=== PATIENT | male | born 1945 | race Caucasian/White ===

== ENCOUNTER 2019-10-23 06:36 | Day surgery (SDC) | payer MEDICARE, OTHER ==
[~2019-10-23] VITALS: Ht 182.9 cm; Wt 85.3 kg
[2019-10-23] VITALS (11 sets, daily range): BP systolic 112–188; BP diastolic 50–81
[~2019-10-23 06:36] MED LIST: ASPI-1053 PO; COLE3.75 PO; LISI10TA4 PO; SUBC1EAC17 MC; TICA90TA PO
[2019-10-23] MEDS ORDERED: LEVO75TA PO (07:11)
[2019-10-23] MEDS ORDERED: ISOS30TA6 PO (07:11)
[2019-10-23] MEDS ORDERED: EVOL140S2 (07:11)
[2019-10-23] MEDS ORDERED: MULT-1085 PO (07:11)
[2019-10-23] MEDS ORDERED: iohexol 350MG/ML 100ml bottle IV ONE (07:26)
[2019-10-23] MEDS ORDERED: fentaNYL/PF 50MCG/1 ML 2ML syringe ONE (07:26)
[2019-10-23] MEDS ORDERED: LIDOcaine 1% (10mg/ml)w/preservative injection 20ml MDV ONE (07:26)
[2019-10-23] MEDS ORDERED: midazolam 2 mg/2 ml injection ONE (07:26)
[2019-10-23] MEDS ORDERED: diphenhydrAMINE 25mg capsule PO PRN (07:30)
[2019-10-23] MEDS ORDERED: normal saline 1,000 ML IV SCH (07:30)
[2019-10-23] MEDS ORDERED: LORazepam 0.5 MG tablet PO PRN (07:30)
[2019-10-23 07:34] LABS: BASOPHILS % (AUTO) 0.9 % (0-1); EOSINOPHILS # (AUTO) 0.3 X10'3 (0-0.9); EOSINOPHILS % (AUTO) 6.5 % (0-6); HEMATOCRIT 51.6 % (42.0-52.0); LYMPHOCYTES # (AUTO) 1.1 X10'3 (1.1-4.8); LYMPHOCYTES % (AUTO) 24.7 % (21-51); MEAN CORPUSCULAR HEMOGLOBIN 31.9 PG (27.0-31.0); MEAN CORPUSCULAR VOLUME 96.5 FL (78-98); MEAN PLATELET VOLUME 10.3 FL (7.4-10.4); MONOCYTES # (AUTO) 0.6 X10'3 (0-0.9); NEUTROPHILS # (AUTO) 2.5 X10'3 (1.8-7.7); NEUTROPHILS % (AUTO) 54.9 % (42-75); PLATELET COUNT 150 X10'3 (140-440); RED BLOOD COUNT 5.35 X10'6 (4.70-6.10); RED CELL DISTRIBUTION WIDTH 13.4 % (11.5-14.5); WHITE BLOOD COUNT 4.6 X10'3 (4.5-11.0)
[2019-10-23 07:42] LABS: ALBUMIN 3.5 G/DL (3.4-5.0); ANION GAP 5 (8-16); BLOOD UREA NITROGEN 20 MG/DL (7-18); BUN/CREATININE RATIO 13.3 (5.4-32.0); CHLORIDE 106 MMOL/L (99-107); GLUCOSE 142 MG/DL (70-104); POTASSIUM 4.6 MMOL/L (3.5-5.1); SODIUM 139 MMOL/L (135-145); TOTAL CARBON DIOXIDE 28.3 MMOL/L (24-32); eGFR 46 ML/MIN
[2019-10-23 07:46] LABS: PARTIAL THROMBOPLASTIN TIME 27 SECONDS (22-32)
--- NOTE | 2019-10-23 08:28 | NUR ---
Pt returned to room from cath lab nurse.
[2019-10-23] MEDS ORDERED: ondansetron/PF 4mg/2ml inj IV PRN (08:55)
[2019-10-23] MEDS ORDERED: nitroGLYCERIN 0.4mg SUBLingual tab SL PRN (08:55)
[2019-10-23] MEDS ORDERED: proCHLORperazine 10 MG/2 ml inj IV PRN (08:55)
[2019-10-23] MEDS ORDERED: HYDROcodone/acetaminophen 5mg/325mg tablet PO PRN (08:55)
[2019-10-23] MEDS ORDERED: acetaminophen 325mg tablet PO PRN (08:55)
[2019-10-23] MEDS ORDERED: OXAZEpam 15mg capsule PO PRN (08:55)
[2019-10-23] MEDS ORDERED: HYDROcodone/acetaminophen 10/325mg tab PO PRN (08:55)
--- NOTE | 2019-10-23 10:07 | NUR ---
patient ate 100% of breakfast tray, 250ml oral fluid intake
--- NOTE | 2019-10-23 12:47 | NUR ---
Pt ate 75% of lunch tray, 250ml oral fluid intake. pt voided 150ml, yellow, clear.
== END 2019-10-23 14:05 | disposition home or self-care (01) ==
LOC: MED 3N 06:36 → U 06:36
PROVIDERS: ATTEND Internal Medicine Interventional Cardiology
DX: R94.39 Abnormal result of other cardiovascular function study (principal); T82.855A Stenosis of coronary artery stent, initial encounter; I25.10 Atherosclerotic heart disease of native coronary artery without angina pectoris; I25.82 Chronic total occlusion of coronary artery; E78.5 Hyperlipidemia, unspecified; I35.0 Nonrheumatic aortic (valve) stenosis; E10.22 Type 1 diabetes mellitus with diabetic chronic kidney disease; I12.9 Hypertensive chronic kidney disease with stage 1 through stage 4 chronic kidney disease, or unspecified chronic kidney disease; N18.9 Chronic kidney disease, unspecified; Z79.899 Other long term (current) drug therapy; Z79.82 Long term (current) use of aspirin; Z95.5 Presence of coronary angioplasty implant and graft; Z96.41 Presence of insulin pump (external) (internal); Z88.8 Allergy status to other drugs, medicaments and biological substances; Y83.8 Other surgical procedures as the cause of abnormal reaction of the patient, or of later complication, without mention of misadventure at the time of the procedure; Y92.89 Other specified places as the place of occurrence of the external cause
CPT/HCPCS: 36415; 80048; 82948; 85025; 85610; 85730; 93005; 93455; 99152; 99153; C1769; J1644; J2001; J2250; J3010; J7030; Q0163; Q9967; A6258

== ENCOUNTER 2020-07-01 14:34 | Emergency (ER) | payer MEDICARE, OTHER ==
[~2020-07-01] VITALS: Ht 182.9 cm; Wt 84.1 kg
[~2020-07-01 14:34] MED LIST changes: -COLE3.75 PO; +EVOL140S2; +ISOS30TA6 PO; +LEVO75TA PO; -LISI10TA4 PO; +MULT-1085 PO; -TICA90TA PO
--- NOTE | 2020-07-01 15:36 | NUR ---
pacemaker is from [facility], interigation in progress
[2020-07-01 16:11] LABS: BASOPHILS % (AUTO) 0.7 % (0-1); EOSINOPHILS # (AUTO) 0.2 X10'3 (0-0.9); EOSINOPHILS % (AUTO) 3.6 % (0-6); HEMATOCRIT 49.7 % (42.0-52.0); HEMOGLOBIN 16.4 g/dl (14.0-17.9); LYMPHOCYTES # (AUTO) 0.9 X10'3 (1.1-4.8); LYMPHOCYTES % (AUTO) 15.1 % (21-51); MEAN CORPUSCULAR HEMOGLOBIN 32.1 PG (27.0-31.0); MEAN CORPUSCULAR VOLUME 97.3 FL (78-98); MEAN PLATELET VOLUME 10.2 FL (7.4-10.4); MONOCYTES # (AUTO) 0.6 X10'3 (0-0.9); MONOCYTES % (AUTO) 9.9 % (2-12); NEUTROPHILS # (AUTO) 4.2 X10'3 (1.8-7.7); NEUTROPHILS % (AUTO) 70.7 % (42-75); PLATELET COUNT 172 X10'3 (140-440); RED BLOOD COUNT 5.11 X10'6 (4.70-6.10); RED CELL DISTRIBUTION WIDTH 14.1 % (11.5-14.5)
--- NOTE | 2020-07-01 16:11 | NUR ---
talked to pacemaker rep he says 8 afib episodes since jun 16, jun 26 had a 2 hr episode of afib. he said today there has been no episodes, a report was sent over from pacemaker rep, will give to
[2020-07-01 17:02] LABS: ALANINE AMINOTRANSFERASE 23 U/L (12-78); ALBUMIN 3.5 G/DL (3.4-5.0); ALBUMIN/GLOBULIN RATIO 1.1 (1.1-1.5); ALKALINE PHOSPHATASE 77 IU/L (46-116); ANION GAP 7 (8-16); ASPARTATE AMINO TRANSFERASE 23 U/L (10-37); BILIRUBIN,TOTAL 0.8 MG/DL (0.1-1.0); BLOOD UREA NITROGEN 34 MG/DL (7-18); BUN/CREATININE RATIO 18.7 (5.4-32.0); CALCIUM 9.3 MG/DL (8.5-10.1); CHLORIDE 104 MMOL/L (99-107); CREATININE 1.82 MG/DL (0.60-1.10); GLUCOSE 92 MG/DL (70-104); POTASSIUM 4.2 MMOL/L (3.5-5.1); SODIUM 139 MMOL/L (135-145); TOTAL CARBON DIOXIDE 27.8 MMOL/L (24-32); TOTAL PROTEIN 6.8 G/DL (6.4-8.2); eGFR 37 ML/MIN
[2020-07-01 18:00] VITALS: BP 144/72
== END 2020-07-01 18:02 | disposition home or self-care (01) ==
LOC: ER 14:35
DX: S06.0X1A Concussion with loss of consciousness of 30 minutes or less, initial encounter (principal); N17.9 Acute kidney failure, unspecified; R51.9 Headache, unspecified; R06.00 Dyspnea, unspecified; I25.10 Atherosclerotic heart disease of native coronary artery without angina pectoris; E11.9 Type 2 diabetes mellitus without complications; Z95.0 Presence of cardiac pacemaker; Z98.890 Other specified postprocedural states; Z79.82 Long term (current) use of aspirin; Z79.899 Other long term (current) drug therapy; X58.XXXA Exposure to other specified factors, initial encounter; Y93.89 Activity, other specified; Y92.89 Other specified places as the place of occurrence of the external cause; Y99.8 Other external cause status
CPT/HCPCS: 36415; 70450; 71045; 80053; 84484; 85025; 93005; 99285

== ENCOUNTER 2020-12-09 01:02 | Emergency (ER) | payer MEDICARE, OTHER ==
[~2020-12-09] VITALS: Ht 182.9 cm; Wt 81.8 kg
[~2020-12-09 01:02] MED LIST changes: -ISOS30TA6 PO; +ISOS30TA84 PO
[2020-12-09] MEDS ORDERED: naloxone 2mg/2ml inj ONE (01:13)
--- NOTE | 2020-12-09 01:30 | NUR ---
DR. LIU AND INDEPENDENT LIVING ADVISOR, TATUM, TALKING WITH FAMILY IN ROOM 17. NURSING STEAM PRESS TENDER, JUSTIN, NOTIFIED AND WILL BRINIG A COMFORT CART SHORTLY.
--- NOTE | 2020-12-09 01:31 | NUR ---
FAMILY TAKEN TO ROOM 5 TO SEE DECESED.
--- NOTE | 2020-12-09 02:11 | NUR ---
[employer] PROFESSOR, MURRAY CASAS, CALLING AND SHE REPORTS PT IS NOT A [employer] CANDIDATE.
--- NOTE | 2020-12-09 02:23 | NUR ---
[employer] CONTACTED AND PT IS A CANDIDATE FOR DONATION. FAMILY WAS NOTIFIED BY MYSELF THAT THEY MAY BE CONTACTED BY THE NETWORK. FAMILY LEFT [employer] 20 MIN AGO. THEY HAVE CHOSEN [employer]. MORTUARY CALLED AND UPDATED. FAMILY REQUESTING AN AUTOPSY. ASSEMBLY ADJUSTER REPORTS THEY MAY HAVE A PRIVATE AUTOPSY PREFORMED ONCE THE CERTIFICATE IS SIGNED. ASSEMBLY ADJUSTER STATES FOR ME TO TELL [facility] TO SEND THE CERTIFICATE TO THE PCP, DR. MIRELLA MARTÍNEZ AND THAT THE FAMIY CAN FOLLOW UP IH THAT. [facility] NOTIFIED OF THIS.
[2020-12-09] MEDS ORDERED: sodium bicarbonate (8.4%) 1 mEq/ml syringe ONE (08:00)
[2020-12-09] MEDS ORDERED: epiNEPHrine 0.1mg/ml 10ml syringe ONE (08:00)
[2020-12-09] MEDS ORDERED: calcium chloride 100 MG/1 ML inj IV ONE (08:00)
[2020-12-09] MEDS ORDERED: dextrose 50%-water 50ml dispensing syringe IV ONE (08:00)
[2020-12-09] MEDS ORDERED: sod chloride 0.9% 10ml flush syringe IV ONE (08:00)
== END 2020-12-09 02:59 | disposition expired ==
LOC: ER 01:03
DX: I46.9 Cardiac arrest, cause unspecified (principal); I95.9 Hypotension, unspecified; I25.2 Old myocardial infarction; E11.9 Type 2 diabetes mellitus without complications; I25.10 Atherosclerotic heart disease of native coronary artery without angina pectoris; Z95.0 Presence of cardiac pacemaker; Z79.82 Long term (current) use of aspirin; Z79.899 Other long term (current) drug therapy
CPT/HCPCS: 92950; 96374; 99285; J0171; J2310; 99291